=== PATIENT | female | born 1945 | race Caucasian/White ===

== ENCOUNTER 2017-02-23 19:36 | Emergency (ER) | payer BC, MEDICARE ==
[~2017-02-23] VITALS: Ht 162.6 cm; Wt 65.5 kg
[~2017-02-23 19:36] MED LIST: PRAV20 PO; SYNT25TA PO; TRAM50 PO
[2017-02-23 19:43] VITALS: BP 117/72; PULSE 72; RESP 15; TEMP 97.9; O2SAT 97
--- NOTE | 2017-02-23 19:49 | PD ---
HPI . left middle finger laceration Chief Complaint: Laceration/Skin Injury Time Seen by Provider: 19:49 Travel History International Travel<30 days: No Contact w/Intl Traveler<30days: No Traveled to known affect area: No History of Present Illness HPI 71-year-old male here with a left middle finger laceration at the just below the DIP joint. Patient was walking her dog when the leash got caught around her finger and cut into it. She has full range of motion of all digits. She is up-to-date on her tetanus vaccine. She has no other complaints. [facility] Past Medical History High Cholesterol: Yes Diminished Hearing: No Thyroid Disease: Yes ?: Not Past Surgical History Tonsillectomy: Yes Social History Alcohol Use: Yes (SOCIAL) Tobacco Use: No Substance Use: No Allergies-Medications (Allergen,Severity, Reaction): Coded Allergies: Darvon (Verified Allergy, Severe, 02/23/17) Macrodantin (Verified Allergy, Severe, 02/23/17) Reported Meds & Prescriptions Reported Meds & Active Scripts Active Reported Pravastatin 20 Mg Tab 20 Mg PO DAILY Levothyroxine (Levothyroxine Sodium) 25 Mcg Tab 25 Mcg PO DAILY Review of Systems General / Constitutional: No: Fever Eyes: No: Visual changes HENT: No: Headaches Cardiovascular: No: Chest Pain or Discomfort Respiratory: No: Shortness of Breath Gastrointestinal: No: Abdominal Pain Genitourinary: No: Dysuria Musculoskeletal: No: Pain Skin: Positive Other (left middle finger laceration), No Rash Neurologic: No: Weakness Psychiatric: No: Depression Endocrine: No: Polydipsia Hematologic/Lymphatic: No: Easy Bruising Physical Exam Narrative GENERAL: AAO x 3, no acute distress, Well-nourished, well-developed patient. SKIN: Warm and dry. No visible rashes or bruising. Just below the DIP joint of the left little finger there is a 1.5 cm laceration wrapping around the finger. It is very superficial without any evidence of nerve or vessel damage. HEAD: Normocephalic and atraumatic. EYES: No scleral icterus. No injection or drainage. ENT: No nasal drainage noted. Mucous membranes pink. Airway patent. NECK: Supple, trachea midline. No JVD. CARDIOVASCULAR: Regular rate and rhythm without murmurs, gallops, or rubs. RESPIRATORY: Breath sounds equal bilaterally. No accessory muscle use. No rhonchi or rales. GASTROINTESTINAL: EXTREMITIES: No cyanosis or edema. Bilateral hands and digits full range of motion. BACK: Nontender without obvious deformity. No CVA tenderness. 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 Data Data Last Documented VS Vital Signs Date Time Temp Pulse Resp B/P Pulse Ox O2 Delivery O2 Flow Rate FiO2 02/23/17 19:43 97.9 72 15 117/72 97 Orders Lidocaine 1% Inj (50 Ml) (Xylocaine 1% I (02/23/17 20:00) MDM Medical Decision Making Medical Screen Exam Complete: Yes Emergency Medical Condition: Yes Medical Record Reviewed: Yes Differential Diagnosis Finger laceration, less likely fracture, skin abrasion Narrative Course 71-year-old female here with a left middle finger laceration. Patient gave verbal consent for repair. 6 sutures were placed to the left middle finger. Bleeding was controlled. Patient tolerated without incident. We discussed the signs of infection and when to return to the emergency department. I advised her to take care of this finger and do not keep excessive moisture as this could lead to maceration of the surrounding tissue. I recommend daily wound care and discuss this with her at length. I advised her that the sutures will need to be removed in 7-10 days. Patient verbalized understanding of instructions, questions were answered, and thanked me for their care. I advised them if their condition worsens, please return to the nearest emergency room for further care. Procedures Procedure Narrative LACERATION LOCATION: Distal left middle finger LENGTH: 1.5 cm NUMBER OF STITCHES/KATHY: 6 REPAIR: The area of the laceration was prepped with Betadine and sterilely draped. The laceration was infiltrated with 1% lidocaine locally. The wound was copiously irrigated and explored without evidence of foreign body, tendon injury or neurovascular injury. The wound was closed using 4-0 Ethilon. This was a single layer repair. A sterile dressing was applied. The patient was advised to keep the dressing clean and dry. Patient tolerated the procedure well. Diagnosis Primary Impression: Laceration of left middle finger Qualified Code: S61.213A - Laceration of left middle finger without foreign body without damage to nail, initial encounter Patient Instructions: General Instructions Additional Instructions: Keep area clean and dry. Use gauze as we discussed and change 1-2 times a day. Watch for signs of infection: fever, redness, swelling, warmth, pus or drainage , red streaks around the cut, and increased pain from the area. If you received a tetanus shot, you may experience tenderness at the injection site. This is normal. You'll need to have the sutures removed in 7-10 days. (6 sutures) Med/Other Pt SpecificInfo: No Change to Meds Disposition: 01 DISCHARGE HOME Condition: Stable Poppy Srivastava Feb 23, 2017 19:49
[2017-02-23] MEDS ORDERED: LEVO25TA4 PO (19:54)
[2017-02-23] MEDS ORDERED: PRAV20TA2 PO (19:54)
[2017-02-23] MEDS ORDERED: LIDOCAINE HCL 1% 50 ML VIAL INFIL ONE (20:00)
== END 2017-02-23 20:41 | disposition home or self-care (01) ==
LOC: PHEFT 19:36
DX: S61.213A Laceration without foreign body of left middle finger without damage to nail, initial encounter (principal); W45.8XXA Other foreign body or object entering through skin, initial encounter; Y93.K1 Activity, walking an animal
CPT/HCPCS: 12001